=== PATIENT | female | born 1995 | race Hispanic/Latino ===

== ENCOUNTER → 2020-11-03 19:31 | Outpatient (CLI) | payer OTHER, MEDICAID, SELFPAY ==
[2020-11-03 21:42] LABS: Urine N gonorrhoeae NOT DETECTED
[2020-11-03 21:43] LABS: Urine Chlamydia NOT DETECTED
== END ==
PROVIDERS: Visit Provider Nurse Practitioner
DX: N89.8 Other specified noninflammatory disorders of vagina (principal); Z11.3 Encounter for screening for infections with a predominantly sexual mode of transmission
CPT/HCPCS: 81025; 87210; 87491; 87591